=== PATIENT | male | born 1980 | race Caucasian/White ===

== ENCOUNTER 2017-03-24 20:43 | Emergency (ER) | payer MEDICAID, OTHER ==
[~2017-03-24] VITALS: Ht 172.7 cm; Wt 92.0 kg
[2017-03-24 21:10] VITALS: BP 130/87; PULSE 80; RESP 18; TEMP 97.6; O2SAT 98
[2017-03-24 21:54] LABS: AUTOMATED NEUTROPHIL # 8.4 TH/MM3 (1.8-7.7); BASOPHIL # 0.1 TH/MM3 (0-0.2); BASOPHIL % 0.8 % (0.0-2.0); EOSINOPHIL # 0.4 TH/MM3 (0-0.4); EOSINOPHIL % 3.5 % (0.0-4.0); HEMO FLAGS DIFF FINAL; LYMPH % 21.3 % (9.0-44.0); LYMPHOCYTE # 2.6 TH/MM3 (1.0-4.8); MEAN CELL VOLUME 82.3 FL (80.0-100.0); MEAN CORPUSCULAR HEMOGLOBIN 28.3 PG (27.0-34.0); MEAN CORPUSCULAR HGB CONC 34.4 % (32.0-36.0); MONO % 6.7 % (0.0-8.0); NEUT % 67.7 % (16.0-70.0); PLATELET COUNT 381 TH/MM3 (150-450); RED CELL DISTRIBUTION WIDTH 14.7 % (11.6-17.2); WHITE BLOOD COUNT 12.4 TH/MM3 (4.0-11.0)
[2017-03-24 22:02] LABS: POTASSIUM 3.9 MEQ/L (3.5-5.1)
--- NOTE | 2017-03-24 22:45 | PD ---
HPI Chief Complaint: Psychiatric Symptoms Time Seen by Provider: 21:14 Travel History International Travel<30 days: No Contact w/Intl Traveler<30days: No Traveled to known affect area: No History of Present Illness HPI Patient's 36 years old. Rest the ER as a Anthony act. He evidently argued with his significant other threatening to get a firearm for the purpose of self harm. to me he denies suicidal ideation/plan. he denies hx suicide attempt. he denies hx psychiatric disease. he reports abuse of IV methamphetamines two days prior; pt denies any prior abuse of drugs intravenously. he denies etoh. + tobaccoism. PFSH Past Medical History Medical History: Denies Significant Hx Immunizations Current: Yes Tetanus Vaccination: Unknown Past Surgical History Surgical History: No Previous Surgery Social History Alcohol Use: No Tobacco Use: Yes (1/2 PPD) Substance Use: Yes ("METH") Allergies-Medications (Allergen,Severity, Reaction): Coded Allergies: No Known Allergies (Unverified , 03/24/17) Reported Meds & Prescriptions Reported Meds & Active Scripts Active No Active Prescriptions or Reported Medications Review of Systems Except as stated in HPI: all other systems reviewed are Neg General / Constitutional: No: Fever Respiratory: No: Cough Psychiatric: Positive: Substance Abuse Physical Exam Narrative GENERAL: 36 yo M, WNWD, cooperative SKIN: Warm and dry. HEAD: Atraumatic. Normocephalic. EYES: Pupils equal and round. No scleral icterus. No injection or drainage. ENT: No nasal bleeding or discharge. Mucous membranes pink and moist. NECK: Trachea midline. No JVD. CARDIOVASCULAR: Regular rate and rhythm. RESPIRATORY: No accessory muscle use. Clear to auscultation. Breath sounds equal bilaterally. GASTROINTESTINAL: Abdomen soft, non-tender, nondistended. Hepatic and splenic margins not palpable. MUSCULOSKELETAL: Extremities without clubbing, cyanosis, or edema. No obvious deformities. NEUROLOGICAL: Awake and alert. No obvious cranial nerve deficits. Motor grossly within normal limits. Five out of 5 muscle strength in the arms and legs. Normal speech. PSYCHIATRIC: Pt denies SI/HI. Reports IV methamphetamine Data Data Last Documented VS Vital Signs Date Time Temp Pulse Resp B/P (MAP) Pulse Ox O2 Delivery O2 Flow Rate FiO2 03/24/17 21:10 97.6 80 18 130/87 (101) 98 VS reviewed Orders Orders Complete Blood Count With Diff (03/24/17 20:52) Basic Metabolic Panel (Bmp) (03/24/17 20:52) Psych Screen (03/24/17 20:52) Drug Screen, Random Urine (03/24/17 20:52) Labs Laboratory Tests Test 03/24/17 21:20 White Blood Count 12.4 TH/MM3 Red Blood Count 5.10 MIL/MM3 Hemoglobin 14.4 GM/DL Hematocrit 42.0 % Mean Corpuscular Volume 82.3 FL Mean Corpuscular Hemoglobin 28.3 PG Mean Corpuscular Hemoglobin Concent 34.4 % Red Cell Distribution Width 14.7 % Platelet Count 381 TH/MM3 Mean Platelet Volume 8.2 FL Neutrophils (%) (Auto) 67.7 % Lymphocytes (%) (Auto) 21.3 % Monocytes (%) (Auto) 6.7 % Eosinophils (%) (Auto) 3.5 % Basophils (%) (Auto) 0.8 % Neutrophils # (Auto) 8.4 TH/MM3 Lymphocytes # (Auto) 2.6 TH/MM3 Monocytes # (Auto) 0.8 TH/MM3 Eosinophils # (Auto) 0.4 TH/MM3 Basophils # (Auto) 0.1 TH/MM3 CBC Comment DIFF FINAL Differential Comment Blood Urea Nitrogen 16 MG/DL Creatinine 1.22 MG/DL Random Glucose 130 MG/DL Calcium Level 9.2 MG/DL Sodium Level 139 MEQ/L Potassium Level 3.9 MEQ/L Chloride Level 102 MEQ/L Carbon Dioxide Level 29.0 MEQ/L Anion Gap 8 MEQ/L Estimat Glomerular Filtration Rate 67 ML/MIN MDM Medical Decision Making Medical Screen Exam Complete: Yes Emergency Medical Condition: Yes Medical Record Reviewed: Yes Differential Diagnosis Altered mental status/psychosis due to infection/environmental exposure/ metabolic abnormality, polypharmacy, alcohol abuse/intoxication, illicit or prescribed drug abuse, malingering/secondary gain, non-organic psychiatric disease Narrative Course CBC & BMP Diagram 03/24/17 21:20 Calcium Level 9.2 The patient is medically clear for Anthony Act evaluation by psychiatry service. Diagnosis Primary Impression: Suicidal behavior Qualified Codes: R46.89 - Other symptoms and signs involving appearance and behavior Admitting Information Admitting Physician Requests: Observation Scripts No Active Prescriptions or Reported Meds Basim Noriega MD Mar 24, 2017 22:45
[2017-03-25 00:36] VITALS: BP 102/62; PULSE 82; RESP 16; O2SAT 98
[2017-03-25 02:49] VITALS: BP 119/67; PULSE 67; RESP 18; O2SAT 98
[2017-03-25 06:17] VITALS: BP 137/80; PULSE 72; RESP 18
--- NOTE | 2017-03-25 10:53 | PD ---
History of Present Illness Chief Complaint: Psychiatric Symptoms Time Seen by Provider: 10:45 Travel History International Travel<30 Days: No Contact w/Intl Traveler<30days: No Known affected area: No Legal Status Legal Status: Anthony Act Anthony Act Signed By: Viviana Maria History of Present Illness: 36-year-old male presents under a Anthony act for reportedly making suicidal threats. Patient feels he was Anthony acted because his was concerned about his behavior. He is a self-admitted drug addict and admits to intravenous use of amphetamine recently. At this time, he is calm and cooperative. He denies any suicidal or homicidal ideation, plan or intent. He exhibits no psychotic symptoms and his cognition is intact. He is verbally vinicio for safety and he is competent to do so. He would like to be discharged and states he has other matters regarding his , employment, legal, etc. to take care of. He is not interested in treatment for drug abuse at this time. PFSH Past Medical History Medical History: Denies Significant Hx Immunizations Current: Yes Tetanus Vaccination: Unknown Past Surgical History Surgical History: No Previous Surgery Psychiatric History Psychiatric History Hx Psychiatric Treatment: PATIENT DENIES History of Inpatient Treatment: No Guns or firearms in home: Yes Social History Hx Alcohol Use: No Hx Tobacco Use: Yes (1/2 PPD) Hx Substance Use: Yes Substance Use Type: Amphetamines-Stimulants Hx of Substance Use Treatment: No Allergies-Medications (Allergen,Severity, Reaction): Coded Allergies: No Known Allergies (Unverified , 03/24/17) Reported Meds & Prescriptions Reported Meds & Active Scripts Active No Active Prescriptions or Reported Medications Review of Systems Except as stated in HPI: all other systems reviewed are Neg Mental Status Examination Appearance: Appropriate Consciousness: Alert Orientation: x4 Motor Activity: Normal gait Speech: Unremarkable Language: Adequate Fund of Knowledge: Adequate Attention and Concentration: Adequate Memory: Unremarkable Mood: Appropriate Affect: Appropriate Thought Process & Associations: Intact Thought Content: Appropriate Hallucination Type: None Delusion Type: None Suicidal Ideation: No Suicidal Plan: No Suicidal Intention: No Homicidal Ideation: No Homicidal Plan: No Homicidal Intention: No Insight: Adequate Judgment: Adequate MDM Medical Decision Making Medical Record Reviewed: Yes Assessment/Plan 36-year-old male under Anthony act for suicidal behavior. Age and states initiated the Anthony act because he was upset about a pending divorce. He denies making suicidal statements and now verbally contracts for safety. Patient was interviewed at bedside. Medical record was reviewed. Case was discussed with nurse Simin. Orders Orders Complete Blood Count With Diff (03/24/17 20:52) Basic Metabolic Panel (Bmp) (03/24/17 20:52) Psych Screen (03/24/17 20:52) Drug Screen, Random Urine (03/24/17 20:52) Diet Regular Basic (03/25/17 Breakfast) Diet Regular Basic (03/25/17 Lunch) Results Vital Signs Date Time Temp Pulse Resp B/P (MAP) Pulse Ox O2 Delivery O2 Flow Rate FiO2 03/25/17 06:17 72 18 137/80 (99) 03/25/17 02:49 67 18 119/67 (84) 98 03/25/17 00:56 03/25/17 00:36 82 16 102/62 (75) 98 Room Air 03/24/17 21:10 97.6 80 18 130/87 (101) 98 Laboratory Tests Test 03/24/17 21:20 White Blood Count 12.4 Red Blood Count 5.10 Hemoglobin 14.4 Hematocrit 42.0 Mean Corpuscular Volume 82.3 Mean Corpuscular Hemoglobin 28.3 Mean Corpuscular Hemoglobin Concent 34.4 Red Cell Distribution Width 14.7 Platelet Count 381 Mean Platelet Volume 8.2 Neutrophils (%) (Auto) 67.7 Lymphocytes (%) (Auto) 21.3 Monocytes (%) (Auto) 6.7 Eosinophils (%) (Auto) 3.5 Basophils (%) (Auto) 0.8 Neutrophils # (Auto) 8.4 Lymphocytes # (Auto) 2.6 Monocytes # (Auto) 0.8 Eosinophils # (Auto) 0.4 Basophils # (Auto) 0.1 CBC Comment DIFF FINAL Differential Comment Blood Urea Nitrogen 16 Creatinine 1.22 Random Glucose 130 Calcium Level 9.2 Sodium Level 139 Potassium Level 3.9 Chloride Level 102 Carbon Dioxide Level 29.0 Anion Gap 8 Estimat Glomerular Filtration Rate 67 Diagnosis Primary Impression: Amphetamine abuse Prescriptions No Active Prescriptions or Reported Meds Brian Coffey MD Mar 25, 2017 10:53
--- NOTE | 2017-03-25 11:00 | PD ---
Physical Exam Date Seen by Provider: Mar 25, 2017 Narrative 36-year-old male presents to emergency department with suicidal ideations. Patient was evaluated by the [facility] ED physician, and referred to psych for evaluation. Patient was seen by Dr. Coffey and lifted a Anthony act. At this time patient denies suicidal or homicidal ideations. Patient will be referred out to [facility] Data Data Last Documented VS Vital Signs Date Time Temp Pulse Resp B/P (MAP) Pulse Ox O2 Delivery O2 Flow Rate FiO2 03/25/17 11:25 03/25/17 06:17 72 18 03/25/17 02:49 98 03/25/17 00:36 Room Air 03/24/17 21:10 97.6 Orders Orders Complete Blood Count With Diff (03/24/17 20:52) Basic Metabolic Panel (Bmp) (03/24/17 20:52) Psych Screen (03/24/17 20:52) Drug Screen, Random Urine (03/24/17 20:52) Diet Regular Basic (03/25/17 Breakfast) Ed Discharge Order (03/25/17 11:01) Labs Laboratory Tests Test 03/24/17 21:20 03/25/17 10:35 White Blood Count 12.4 TH/MM3 Red Blood Count 5.10 MIL/MM3 Hemoglobin 14.4 GM/DL Hematocrit 42.0 % Mean Corpuscular Volume 82.3 FL Mean Corpuscular Hemoglobin 28.3 PG Mean Corpuscular Hemoglobin Concent 34.4 % Red Cell Distribution Width 14.7 % Platelet Count 381 TH/MM3 Mean Platelet Volume 8.2 FL Neutrophils (%) (Auto) 67.7 % Lymphocytes (%) (Auto) 21.3 % Monocytes (%) (Auto) 6.7 % Eosinophils (%) (Auto) 3.5 % Basophils (%) (Auto) 0.8 % Neutrophils # (Auto) 8.4 TH/MM3 Lymphocytes # (Auto) 2.6 TH/MM3 Monocytes # (Auto) 0.8 TH/MM3 Eosinophils # (Auto) 0.4 TH/MM3 Basophils # (Auto) 0.1 TH/MM3 CBC Comment DIFF FINAL Differential Comment Blood Urea Nitrogen 16 MG/DL Creatinine 1.22 MG/DL Random Glucose 130 MG/DL Calcium Level 9.2 MG/DL Sodium Level 139 MEQ/L Potassium Level 3.9 MEQ/L Chloride Level 102 MEQ/L Carbon Dioxide Level 29.0 MEQ/L Anion Gap 8 MEQ/L Estimat Glomerular Filtration Rate 67 ML/MIN Urine Opiates Screen NEG Urine Barbiturates Screen NEG Urine Amphetamines Screen POS Urine Benzodiazepines Screen NEG Urine Cocaine Screen NEG Urine Cannabinoids Screen NEG MDM Supervised Visit with UBALDO: Yes Diagnosis Primary Impression: Amphetamine abuse Scripts No Active Prescriptions or Reported Meds Vidya Nichole Mar 25, 2017 11:00
== END 2017-03-25 11:28 | disposition home or self-care (01) ==
LOC: NEPD 20:43 → NEPJ 03-25 11:28
DX: F15.10 Other stimulant abuse, uncomplicated (principal); F17.200 Nicotine dependence, unspecified, uncomplicated
CPT/HCPCS: 80048; 80307; 85025; 99284